=== PATIENT | female | born 1990 | race Two or more races ===

== ENCOUNTER 2020-06-23 21:07 | Emergency (ER) | payer BC ==
[~2020-06-23] VITALS: Ht 160 cm; Wt 79.4 kg
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
[2020-06-23] MEDS ORDERED: IBUPROFEN 400 MG TABLET ONE (21:56)
[2020-06-23] MEDS ORDERED: METHOCARBAMOL (500MG) 500 MG TABLET ONE (21:57)
[2020-06-23] MEDS ORDERED: METHOCARBAMOL (750MG) 750 MG TABLET PO SCH (22:00)
[2020-06-23] MEDS ORDERED: IBUPROFEN 400 MG TABLET PO ONE (22:00)
[2020-06-23] MEDS ORDERED: IBUP-1957 PO (22:44)
[2020-06-23] MEDS ORDERED: METH-406 PO (22:44)
--- NOTE | 2020-06-23 22:53 | NUR ---
Patient discharged to home in stable condition. Written and verbal after care instructions given. Patient verbalizes understanding of instruction. Pt ambulatory with a steady gait
[2020-06-23 22:54] VITALS: BP 119/55
== END 2020-06-23 22:53 | disposition home or self-care (01) ==
LOC: ER 21:11
DX: S29.012A Strain of muscle and tendon of back wall of thorax, initial encounter (principal); S29.011A Strain of muscle and tendon of front wall of thorax, initial encounter; Z79.899 Other long term (current) drug therapy; V49.49XA Driver injured in collision with other motor vehicles in traffic accident, initial encounter; Y93.89 Activity, other specified; Y92.413 State road as the place of occurrence of the external cause; Y99.8 Other external cause status